=== PATIENT | female | born 1955 | race Caucasian/White ===

== ENCOUNTER 2017-05-06 10:31 | Emergency (ER) | payer BC ==
[2017-05-06] MEDS ORDERED: Propofol 200 MG/20 ML SDV IV ONE (10:32)
[2017-05-06 10:42] VITALS: BP 102/47
[2017-05-06] MEDS ORDERED: Ondansetron 4 MG/2 ML SDV IV ONE (10:56)
[2017-05-06] MEDS ORDERED: Morphine 2 MG/ML Syringe IVPUSH ONE ×2 (10:56→11:19)
--- NOTE | 2017-05-06 11:14 | EDM.PDOC ---
ED HPI GENERAL MEDICAL PROBLEM - General Chief Complaint: Upper Extremity Injury/Pain Stated Complaint: SLIPPED, RT WRIST Time Seen by Provider: 05/06/17 10:45 Source of Information: Reports: Patient, RN, RN Notes Reviewed History Limitations: Reports: No Limitations - History of Present Illness INITIAL COMMENTS - FREE TEXT/NARRATIVE: Beulah is a 61 yo Female who presents to the ED after sustaining a same level fall. She relates that she slipped and fell on the ice landing on her right wrist. She denies hitting her head. Denies neck pain or dizziness prior to the fall. She reports severe pain to her right arm. Denies numbness or tingling to hand. Onset: Today Onset Date: 05/06/17 Onset Time: 10:30 Location: Reports: Upper Extremity, Right Quality: Reports: Stabbing Severity: Severe Improves with: Reports: Rest Worsens with: Reports: Movement Associated Symptoms: Reports: Diaphoresis, Nausea/Vomiting Right Wrist Pain Score (Numeric/FACES): 7 - Related Data Allergies Allergy/AdvReac Type Severity Reaction Status Date / Time bupropion [From Wellbutrin] Allergy Seizure Verified 05/06/17 11:56 codeine Allergy Nausea and Verified 05/06/17 10:35 Vomiting Home Meds: Home Meds LORazepam [Ativan] 0.5 mg PO BEDTIME 07/23/13 [History] Melatonin 3 mg PO BEDTIME 07/23/13 [History] Sertraline [Zoloft] 150 mg PO DAILY 07/23/13 [History] Simvastatin [Zocor] 20 mg PO BEDTIME 07/23/13 [History] busPIRone [Buspar] 15 mg PO TID 07/23/13 [History] Past Medical History - Past Health History Medical/Surgical History: Denies Medical/Surgical History - Past Surgical History Female Surgical History: Reports: Other (See Below) Other Female Surgeries/Procedures: ovarian cyst Social & Family History - Family History Family Medical History: Noncontributory - Tobacco Use Smoking Status *Q: Never Smoker Second Hand Smoke Exposure: No - Caffeine Use Caffeine Use: Reports: None - Alcohol Use Days Per Week of Alcohol Use: 0 - Recreational Drug Use Recreational Drug Use: No Review of Systems - Review of Systems Review Of Systems: ROS reveals no pertinent complaints other than HPI. ED EXAM, GENERAL - Physical Exam Exam: See Below Exam Limited By: No Limitations General Appearance: Alert, WD/WN, No Apparent Distress Eye Exam: Bilateral Eye: EOMI, PERRL Ears: Normal External Exam, Normal Canal, Hearing Grossly Normal, Normal TMs Ear Exam: Bilateral Ear: Auricle Normal, Canal Normal, TM normal Nose: Normal Inspection, Normal Mucosa, No Blood Throat/Mouth: Normal Inspection, Normal Lips, Normal Teeth, Normal Gums, Normal Oropharynx, Normal Voice, No Airway Compromise Head: Atraumatic, Normocephalic Neck: Normal Inspection, Supple, Non-Tender, Full Range of Motion Respiratory/Chest: No Respiratory Distress, Lungs Clear, Normal Breath Sounds, No Accessory Muscle Use, Chest Non-Tender Cardiovascular: Normal Peripheral Pulses, Regular Rate, Rhythm, No Edema, No Gallop, No JVD, No Murmur, No Rub GI/Abdominal: Normal Bowel Sounds, Soft, Non-Tender, No Organomegaly, No Distention, No Abnormal Bruit, No Mass (Female) Exam: Deferred Rectal (Female) Exam: Deferred Back Exam: Normal Inspection, Full Range of Motion, NT Extremities: Arm Pain (Obvious deformity noted to patient's right wrist. Radial and ulnar pulses present. Capillary refill less than 2 seconds to right hand. Other extremities intact no deformities noted. ) Neurological: Alert, Oriented, CN II-XII Intact, Normal Cognition, Normal Gait, Normal Reflexes, No Motor/Sensory Deficits Psychiatric: Normal Affect, Normal Mood Skin Exam: Warm, Dry, Intact, Normal Color, No Rash Lymphatic: No Adenopathy ED TRAUMA EXTREMITY PROCEDURES - Joint Reduction Site: Other (Right wrist) Sedation: Conscious Sedation Pre-Procedure NV Status: Normal Post-Procedure NV Status: Normal Technique: Traction/Counter Traction Number of Attempts: 1 Post-Reduction Imaging: Acceptably Reduced Joint Reduction Complications: No - Splinting Right Upper Extremity Pre-Procedure NV Status: Normal Post-Procedure NV Status: Normal Splint Material: Fiberglass Provider Post-Splint Application NV Check: NV Status Normal, Good Position Course - Vital Signs Last Recorded V/S: Last Vital Signs Temp 35.6 C 05/06/17 10:36 Pulse 66 05/06/17 10:36 Resp 18 05/06/17 10:36 BP 102/47 L 05/06/17 10:36 Pulse Ox 100 05/06/17 10:36 - Orders/Labs/Meds Meds: Medications Discontinued Medications Generic Name Dose Route Start Last Admin Trade Name Debby PRN Reason Stop Dose Admin Hydrocodone Bitart/Acetaminophen 1 tab 05/06/17 13:34 05/06/17 13:53 [place] 325-10 Mg PO 05/06/17 13:35 1 tab ONETIME ONE Administration Morphine Sulfate 2 mg 05/06/17 10:56 05/06/17 11:00 Morphine IVPUSH 05/06/17 10:57 2 mg ONETIME ONE Administration Morphine Sulfate 2 mg 05/06/17 11:19 05/06/17 11:35 Morphine IVPUSH 05/06/17 11:20 2 mg ONETIME ONE Administration Ondansetron HCl 4 mg 05/06/17 10:56 05/06/17 11:00 Zofran IV 05/06/17 10:57 4 mg ONETIME ONE Administration Departure - Departure Time of Disposition: 13:35 Disposition: Home, Self-Care 01 Condition: Good Clinical Impression: Dislocation, ulnar styloid Right radial fracture Qualifiers: Encounter type: initial encounter Radius location: distal Fracture type: closed Fracture morphology: other extra-articular Qualified Code(s): S52.551A - Other extraarticular fracture of lower end of right radius, initial encounter for closed fracture - Discharge Information Instructions: Forearm Fracture, [id number], Cast or Splint Care, Adult, Easy- to-Read Forms: ED Department Discharge Care Plan Goals: Go to [facility] after leaving the ER to meet with Dr Chan. Keep splint in place until follow with him. Nothing to eat or drink.
--- NOTE | 2017-05-06 11:33 | CR ---
Clinical history: 61-year-old female injured (fall on ice) right wrist. Interpretation: Abnormal. Acute distal diaphyseal fracture, right radius with some impaction and approximately 50% dorsal radia l offset of the distal fragment i.e. concern regard to compromise blood flow distally." Clinical roya elation please. Associated tiny ulnar styloid avulsion and surrounding soft tissue swelling. No radiocarpal joint dislocation.
--- NOTE | 2017-05-06 13:03 | CR ---
Clinical history: 61-year-old female undergoing closed reduction acute right wrist fracture. Interpretation: AP lateral views of the right wrist reveal satisfactory reduction i.e. reasonable sadiq osition bone fragments and now near anatomic alignment of the distal right radial fracture fragment w ith the radial shaft. (Orthopedic splint) Surrounding soft tissue swelling and ulnar styloid fracture fragment unchanged. No sign of other, post reduction, right wrist or metacarpal fracture/dislocation.
[2017-05-06] MEDS ORDERED: Acetaminophen/HYDROcodone 325-10 MG Tab PO ONE (13:34)
== END 2017-05-06 13:49 | disposition home or self-care (01) ==
LOC: DL.ED 10:31
DX: S52.551A Other extraarticular fracture of lower end of right radius, initial encounter for closed fracture (principal); S63.074A Dislocation of distal end of right ulna, initial encounter; Z88.5 Allergy status to narcotic agent; Z88.8 Allergy status to other drugs, medicaments and biological substances; Z79.899 Other long term (current) drug therapy; W00.0XXA Fall on same level due to ice and snow, initial encounter
CPT/HCPCS: 25605; 73100; 96374; 96375; 96376; 99152; 99283; A9270; J2270; J2405; J2704